=== PATIENT | female | born 1930 | race Caucasian/White ===

== ENCOUNTER 2017-08-02 16:21 | Inpatient (IN) | payer MEDICARE ==
[~2017-08-02] VITALS: Ht 165.1 cm; Wt 68.0 kg
[2017-08-02] MEDS ORDERED: ACET500C4 PO (16:58)
[2017-08-02] MEDS ORDERED: MELA3TAB PO (16:58)
[2017-08-02] MEDS ORDERED: GUAI-818 PO (16:58)
[2017-08-02] MEDS ORDERED: FERR-58 PO (16:58)
[2017-08-02] MEDS ORDERED: SENN-167 PO (16:58)
[2017-08-02] MEDS ORDERED: PREG100C PO (16:58)
[2017-08-02] MEDS ORDERED: ASCO500C16 PO (16:58)
[2017-08-02] MEDS ORDERED: LISI2.5T2 PO (16:58)
[2017-08-02] MEDS ORDERED: LORA0.5T PO (16:58)
[2017-08-02] MEDS ORDERED: GNP VIT D PO (16:58)
[2017-08-02] MEDS ORDERED: METF500T4 PO (16:58)
[2017-08-02] MEDS ORDERED: HYDR-3326 PO (16:58)
[2017-08-02] MEDS ORDERED: QUET50TA14 PO (16:58)
[2017-08-02] MEDS ORDERED: MENT71OI TP (16:58)
[2017-08-02] MEDS ORDERED: LEVO75TA7 PO (16:58)
[2017-08-02] MEDS ORDERED: ATOR20TA PO (16:58)
[2017-08-02] MEDS ORDERED: ACET-2067 PO (16:58)
[2017-08-02] MEDS ORDERED: DONE5TAB34 PO (16:58)
[2017-08-02] MEDS ORDERED: ALBU18HF2 INH (16:58)
[2017-08-02] MEDS ORDERED: VENL75TA4 PO (16:58)
[2017-08-02] MEDS ORDERED: QUET25TA PO (16:58)
[2017-08-02] MEDS ORDERED: HALLS PO (16:58)
[2017-08-02] MEDS ORDERED: [UNRECOGNIZED DRUG - OTHER] TOP (16:58)
[2017-08-02] MEDS ORDERED: POLY17PO4 PO (16:58)
[2017-08-02] MEDS ORDERED: CRAN405C PO (16:58)
[2017-08-02] MEDS ORDERED: MAGNESIUM GLUCONATE PO (16:58)
[2017-08-02] MEDS ORDERED: CYAN10009 PO (16:58)
[2017-08-02] MEDS ORDERED: [UNRECOGNIZED DRUG - OTHER] (16:58)
[2017-08-02] MEDS ORDERED: METH1POW39 MC (16:58)
[2017-08-02 17:11] LABS: BASOPHILS % (AUTO) 0.2 % (0.0-2.0); EOSINOPHILS # (AUTO) 0.1 K/uL (0.0-0.7); EOSINOPHILS % (AUTO) 1.1 % (0.0-7.0); HEMATOCRIT 34.2 % (37-47); HEMOGLOBIN 11.3 G/DL (12.0-16.0); LYMPHOCYTES % (AUTO) 22.2 % (20.5-51.5); MEAN CORPUSCULAR HEMOGLOBIN 30.4 UUG (27.0-31.0); MEAN CORPUSCULAR HGB CONC 33 g/dL (32.0-37.0); MEAN CORPUSCULAR VOLUME 92.6 FL (81.0-99.0); MONOCYTES # (AUTO) 0.4 K/UL (0.1-1.30); MONOCYTES % (AUTO) 9.1 % (0.0-11.0); NEUTROPHILS # (AUTO) 3.2 K/UL (1.8-8.9); NEUTROPHILS % (AUTO) 67.4 % (38.5-71.5); PLATELET COUNT (AUTO) 268 K/UL (150-450); WHITE BLOOD COUNT (AUTO) 4.7 K/UL (4.0-11.2)
[2017-08-02 17:18] LABS: CARBON DIOXIDE 28 mmol/L (21-32); CHLORIDE 102 mmol/L (98-107); CREATININE 1.2 mg/dL (0.6-1.3); GLUCOSE 114 mg/dL (74-106); POTASSIUM 4.4 mmol/L (3.5-5.1); UREA NITROGEN, BLOOD 28 mg/dL (7-18)
[2017-08-02] MEDS ORDERED: LORAZEPAM 0.5 MG TABLET PO ONE (17:30)
[2017-08-02 17:33] LABS: ACETAMINOPHEN < 2.0 ug/mL (10-30); ALANINE AMINOTRANSFERASE 26 U/L (14-59); ALKALINE PHOSPHATASE 67 U/L (50-136); ASPARTATE AMINOTRANSFERASE 23 U/L (15-37); BILIRUBIN,DIRECT 0.1 mg/dL (0.0-0.2); BILIRUBIN,TOTAL 0.3 mg/dL (0.2-1.0); TOTAL PROTEIN, SERUM 7.9 g/dL (6.4-8.2)
[2017-08-02] MEDS ORDERED: HYDROCODONE/APAP 10-325 MG TABLET PO ONE (17:45)
[2017-08-02 17:52] LABS: ETHANOL < 3 MG/DL (0-0)
[2017-08-02] MEDS ORDERED: HYDROCODONE/APAP 10-325 MG TABLET ONE (17:57)
[2017-08-02] MEDS ORDERED: LORAZEPAM 0.5 MG TABLET ONE ×2 (17:57→21:24)
--- NOTE | 2017-08-02 17:57 | NUR ---
CALLED [facility] FOR PSYCH EVAL AND LEFT A MESSAGE
[2017-08-02 18:00] LABS: THYROID STIMULATING HORMONE 0.947 mIU/mL (0.358-3.740)
--- NOTE | 2017-08-02 18:23 | NUR ---
CALLED [facility] FOR PSYCH EVAL.
--- NOTE | 2017-08-02 18:42 | NUR ---
PT RESTING, DAUGHTERS AT BESIDE.
--- NOTE | 2017-08-02 19:15 | NUR ---
Received report from SAIRA Bahena. Assumed care of pt at this time. Hilda with crisis team at bedside for evaluation.
--- NOTE | 2017-08-02 19:55 | NUR ---
Pt placed on a 5150 hold for gravely disabled. Pt to be admitted to MHU. Report called to SAIRA Earl. Preparing to transfer pt to the floor.
--- NOTE | 2017-08-02 20:25 | NUR ---
Pt to U via fabio
--- NOTE | 2017-08-02 20:35 | NUR ---
87 Y.O. FEMALE BROUGHT TO MHU VIA [facility] WITH ER STAFF AND FAMILY PRESENT. Pt ON A 5150 FOR GD. ACCORDING TO THE HOLD, Pt's FAMILY REQUESTED A PSYCH EVAL AT [facility]. Pt RESIDES AT [facility] AND WHILE THERE, Pt WAS EXPERIENCING INCREASED CONFUSION, AGITATION, AND PARANOIA. Pt IS CONFUSED, DISORGANIZED, AND DISORIENTED. ACCORDING TO Pt's DAUGHTER, Pt HAS BEEN INCREASINGLY CONFUSED, AGITATED, IRRITABLE, PARANOID, SUSPICIOUS, AND DELUSIONAL. Pt THINKS THEY ARE PUTTING SAND IN HER THROAT AT NIGHT, AND THINKS THAT THE CEILING IS LEAKING. Pt IS ANXIOUS AND RESTLESS. Pt ALSO VERBALIZING THAT SHE WANTS TO , ASKING HER DAUGHTER TO BRING HER A GUN. H/O BIPOLAR D/O. Pt APPEARS TO REFLECT WHAT IS ON THE HOLD, RN CONCURS WITH HOLD. Pt GIVEN ADVISEMENT AND PATIENT RIGHTS HANDBOOK. UPON FACE TO FACE EVALUATION, Pt IS A+Ox1 TO NAME ONLY, IS CONFUSED, DISORIENTED, AND DISORGANIZED. PRESENTS RESTLESS AND ANXIOUS, ATTEMPTING MULTIPLE TIMES TO GET OUT OF BED IN SPITE OF STAFF DIRECTION TO REMAIN IN BED FOR HER SAFETY. Pt UNABLE TO AMBULATE AND REQUIRES TOTAL ASSISTANCE AND CARE. Pt IS VERY FOCUSED ON SOMATIC SYMPTOMS, REPEATEDLY STATING SHE HAS "PINS ALL OVER" HER BODY. Pt STARED BLANKLY WHEN ASKED ABOUT THOUGHTS OF SI, AND WAS UNABLE TO VERBALLY CFS. Pt ADMINISTERED TYLENOL 650mg FOR GENERALIZED PAIN AND ATIVAN 0.5mg FOR ANXIETY WITH GOOD EFFECT. Pt STATED SHE IS "SCARED" AND DOESN'T REMEMBER HOW SHE GOT HERE. EMOTIONAL SUPPORT AND REORIENTATION PROVIDED. Pt HAS A MEDICAL H/O VASCULAR DEMENTIA, HTN, HLD, TBI, RECURRENT UTI, FALLS, DM 2, HYPOTHYROIDISM, CKD, CHRONIC PAIN, CHRONIC CYSTITIS, TIA, ((R) FEMUR FX (2014), PERIPHERAL NEUROPATHY, ANXIETY, MDD, INSOMNIA, AND BIPOLAR D/O. DR CLEMENTE AND DR LEE NOTIFIED OF ADMISSION, ORDERS RECEIVED. Pt EDUCATED ON UNIT RULES AND ORIENTED TO THE UNIT, REQUIRES REINFORCEMENT. VS STABLE, SKIN TEARS TO (R) UPPER CHEST AND (L) FA PRESENT. WOUNDS PHOTOGRAPHED AND DRESSED ON KERLIX. WC ORDERED. Pt HAS NO BELONGINGS WITH HER. Pt DAUGHTERS POLY AND ROXANE (DPOA) PROVIDED Pt's MEDICAL HX, ROXANE SIGNED PAPERWORK.
[2017-08-02 20:40] VITALS: BP 140/66
[2017-08-02] MEDS ORDERED: MAGNESIUM HYDROXIDE 30 ML LIQUID UDC PO PRN (21:00)
[2017-08-02] MEDS ORDERED: MAG HYDROX/AL HYDROX/SIMETH 30 ML LIQUID UDC PO PRN (21:00)
[2017-08-02] MEDS: LORAZEPAM 0.5 MG TABLET PO PRN (21:09)
[2017-08-02] MEDS: ACETAMINOPHEN 325 MG TABLET PO PRN (21:09)
[2017-08-02] MEDS ORDERED: ACETAMINOPHEN 325 MG TABLET ONE (21:23)
[2017-08-02] MEDS: TEMAZEPAM 7.5 MG CAPSULE PO PRN (23:59)
[2017-08-03] MEDS ORDERED: TEMAZEPAM 7.5 MG CAPSULE ONE (00:12)
[2017-08-03] MEDS ORDERED: Z GUARD REMEDY PASTE 57 GM TUBE TOP PRN (00:15)
[2017-08-03] MEDS ORDERED: ALBUTEROL SULFATE 8 GM HFA.AER.AD INH PRN (00:30)
[2017-08-03] MEDS ORDERED: MIRALAX 17 GM POWD.PACK PO PRN (00:30)
[2017-08-03 07:30] VITALS: BP 117/58
[2017-08-03] MEDS ORDERED: ALBUTEROL SULFATE 2.5 MG/3 ML NEBU NEB PRN (08:30)
[2017-08-03] MEDS: METFORMIN HCL 500 MG TABLET PO SCH ×2 (09:00→17:36)
[2017-08-03] MEDS: LISINOPRIL 5 MG TABLET PO SCH (09:00)
[2017-08-03] MEDS ORDERED: PREGABALIN 100 MG CAPSULE PO SCH (09:00)
[2017-08-03] MEDS: CYANOCOBALAMIN 1,000 MCG TABLET PO SCH (09:02)
[2017-08-03] MEDS: FERROUS SULFATE 325 MG TABEC PO SCH (09:02)
[2017-08-03] MEDS: LEVOTHYROXINE SODIUM 75 MCG TABLET PO SCH (09:06)
[2017-08-03] MEDS: ACETAMINOPHEN 325 MG TABLET PO PRN ×2 (09:32→21:16)
--- NOTE | 2017-08-03 10:15 | NUR ---
VS WERE TAKEN THIS MORNING AT 0730 BY SENIOR SOFTWARE DEVELOPER AND AGUSTIN. SENIOR SOFTWARE DEVELOPER REPORTED TO RN THAT O2 SAT WAS BETWEEN 85-88% RA, TAKEN 4 TIMES. THIS ENGINEER TECHNICAL STAFF WENT TO ASSESS Pt AND GOT 3 DIFFERENT O2 SATS RANGING FROM 86-89% RA. DR ALVES NOTIFIED OF Pt CONDITION, AND 02 @ 2 LPM VIA NC WAS ORDERED TO TITRATE TO 93%. AFTER PLACING THE Pt ON O2 WITH NC, Pt C/O NASAL DRYNESS. THIS ENGINEER TECHNICAL STAFF TOOK THE CANNULA OFF TO PLACE MORE LUBE ON IT, AND Pt IMMEDIATELY DE-SATTED TO 83% RA. UPON REPLACING THE 02 @ 2 LPM, Pt SATTED AT 89%. O2 WAS RAISED TO 4 LPM AND Pt SATTED AT 91%. UPPED TO 5 LPM, Pt SATTED AT 92%. PT RR WAS BETWEEN 10-12 DURING THIS TIME, SOMEWHAT LABORED. Pt C/O "PINS AND NEEDLES" PAIN, AND WHEN RN WENT TO ADMINISTER TYLENOL, Pt WAS INCREASINGLY CONFUSED AND STATED SHE WAS NOW UNABLE TO SWALLOW. DR ALVES NOTIFIED OF Pt DECOMPENSATION AND ORDERED HER TO GO TO ER FOR EVAL. NURSING OPTICAL MANAGER JOSE FRANCISCO NOTIFIED. MICHAEL FROM ER GIVEN REPORT. Pt TAKEN VIA MHU BED TO ER WITH 2 STAFF AND CHART. SITTER REMAINS WITH Pt SHE IS BEING EVALUATED BY ER . BP AND HR STABLE AT THIS TIME.
--- NOTE | 2017-08-03 13:06 | NUR ---
SOL CALLED FROM ER CALLED TO REPORT Pt WAS MEDICALLY CLEARED. RN WENT TO ART MANAGER Pt FROM ER AND FAMILY WAS PRESENT. Pt's 2 DAUGHTERS WERE PRESENT AND STATED THEY WOULD WAIT IN THE LOBBY TO SPEAK WITH THE PSYCHIATRIST. RN AND SITTER TRANSPORTED THE Pt TO THE MHU AND WHEN THE DOORS OPENED TO THE UNIT, Pt's 2 DAUGHTERS CAME INTO THE UNIT UNINVITED AND REFUSED TO LEAVE THE UNIT UNTIL THEY SPOKE WITH DR CLEMENTE. Pt's FAMILY ACCUSED STAFF OF WITHHOLDING MEDICATIONS AND BECAME VERBALLY AGGRESSIVE TOWARD STAFF. CLOSING PT'S ROOM AND KICKING STAFF OUT OF THE ROOM. THREATENING TO CALL A CABLE TOWER OPERATOR TO [facility] FOR "MISTREATING OUR MOTHER." STATING THEY CAN BRING PT HOME EVEN ON AN INVOLUNTARY HOLD. SECURITY WAS CALLED TO ESCORT THE FAMILY OUT OF THE UNIT, BUT FAMILY STILL REFUSED TO LEAVE UNTIL THEY SPOKE TO A DOCTOR. DR. CLEMENTE CALLED AND AWARE OF SITUATION, AND SPOKE TO FAMILY. PT STABLE AT THIS TIME, SLEEPING COMFORTABLY. V/S STABLE. NURSING FIRST MATE AWARE OF SITUATION.
[2017-08-03 16:34] VITALS: BP 148/69
[2017-08-03] MEDS: HYDROCODONE/APAP 5-325MG TABLET PO PRN ×2 (17:10→22:48)
[2017-08-03] MEDS: LORAZEPAM 0.5 MG TABLET PO PRN (18:24)
[2017-08-03 20:14] VITALS: BP 130/62
[2017-08-03] MEDS: QUETIAPINE FUMARATE 25 MG TABLET PO SCH ×2 (21:00→21:13)
[2017-08-03] MEDS: DONEPEZIL 5 MG TABLET PO SCH (21:13)
[2017-08-03] MEDS ORDERED: VENLAFAXINE 37.5 MG TABLET ONE (21:15)
[2017-08-03] MEDS: ATORVASTATIN 20 MG TABLET PO SCH (21:16)
[2017-08-03] MEDS ORDERED: QUETIAPINE FUMARATE 25 MG TABLET ONE (21:27)
[2017-08-03] MEDS ORDERED: DONEPEZIL 5 MG TABLET ONE (21:27)
[2017-08-03] MEDS: TEMAZEPAM 7.5 MG CAPSULE PO PRN (22:48)
--- NOTE | 2017-08-04 00:06 | NUR ---
NSG/GPS 1944 Patient first observed awake in room lying in bed, with daughter sitting in patient room. Patient appeared confused, disorganized. Family member made aware visiting hours were over, daughter requested Tylenol for patient, nurse assured it would be administered as soon as vital signs were obtained and proceeded to escort family member off the unit. Family member stated she was waiting for the psychiatrist to which staff replied by suggesting to wait in the lobby as well as offering to notify as soon as psychiatrist arrived. Family member stated they were leaving and requested the psychiatrist give them a call. Addendum: 08/04/17 at 0029 by NORY WYNN RN 2030 Patient offerted Tylenol, patient stated she did not have pain. Upon psychiatrist evaluation patient appears confused, flat affect, low mood, with clear speech. Patient is not able to state the date, or location, when asked why she is in the hospital, patient replies "well, I guess I did not feel well." Patient answered no to having daughters, and no to being afraid, patient also denied having suicidal feelings. Patient although confused was cooperative and pleasant towards doctor and staff. Family contacted by psychiatrist contract graphic designer orders carried out and administered along with Tylenol requested by family. Addendum: 08/04/17 at 0033 by NORY WYNN RN 2129 Patient's family called to request that we administer prn for pain, stated that the previous nurse had informed her to call the hospital every four hours to ask for it. Nurse informed family member that it was prn and that we would monitor for pain and administer accordingly.
--- NOTE | 2017-08-04 01:15 | NUR ---
GPS/NSG Patient's daughter (Leatha) called and asked to speak to nurse to follow up on psych medication administration, nurse informed family member it had been administered as ordered. Patient verbalized concerns about mother missing psychiatric medication for over twenty-four hours, family member asked the reason for change in dose for lyrica, staff responded by suggesting a message to flight operations inspector to call family member to discuss all questions related to medication. Patient's daughter's tone was agitated and hostile towards staff, stating dissatisfaction with our care. Patient asked if the police could be called to break the hold, patient asked why family could not take patient home when a family member had placed the hold, staff explained that the hold was placed by a Crisis Psychosocial Rehabilitation Counselor, also reminded the date and time when hold . Addendum: 08/04/17 at 0413 by NORY WYNN RN Patient's daughter asked if the hold could be broken by police not patient. Patient's daughter asked why they could not take her home.
[2017-08-04] MEDS ORDERED: LORAZEPAM 2 MG/1 ML VIAL IM ONE ×2 (01:26→16:00)
[2017-08-04] MEDS ORDERED: HALOPERIDOL LACTATE 5 MG/1 ML VIAL IM ONE ×2 (01:30→16:00)
--- NOTE | 2017-08-04 01:47 | NUR ---
NSG/GPS Patient observed to have increased agitation, patient disrobing, making threats towards staff, "you'll see, I will hurt you. Patient trying to get out of bed, accusing staff of putting sand in her diaper, verbalizing pain. Prn for pain administered as ordered as well as prn for insomnia with ineffective outcome. Patient continued to yell out help, help, as well as make threats towards staff attempting to provide care. Addendum: 08/04/17 at 0153 by NORY WYNN RN Patient continues to display agitation towards staff spitting at staff trying to get out of bed, combative when attempts to provide assistance. Psychiatrist contacted prn times one administered as ordered. Will continue to monitor for safety.
[2017-08-04] MEDS: HYDROCODONE/APAP 5-325MG TABLET PO PRN ×4 (05:37→11:54)
--- NOTE | 2017-08-04 05:44 | NUR ---
GPS/NSG PRN for pain offered patient took it swished it in hger mouth and spit it into water cup. Wasted pill, patient began to try to get out of bed, saying it was the pins and needles that made her do it. Patient continued to disrobe at this time increased agitation when providing a.m. care. Removing diaper, gown, and throwing sheets off the bed. Confused, verbally aggressive towards staff. 1:1 within arms length ordered for safety. Continue to monitor closely.
--- NOTE | 2017-08-04 06:03 | NUR ---
GPS:PT IS VERY CONFUSED AND AGITATED.CALLING OUT FOR HELP THAT SOMEONE IS TRYING TO PUT THE PINS AND THE WET BLANKET ON HER EVEN THOUGH STAFF SHOWED HER THE DIFFERENCE BETWEEN WET AND DRY TOWELS, BUT PT INSISTED THAT BOTH WERE WET WHEN SHE HELD BOTH TOWELS IN BOTH HANDS. SHE CONTINUED YELLING AND SCREAMING THAT STAFF WERE TRYING TO HURT HER WHEN STAFF DIDN'T NOT COME NEAR HER AT ALL.
[2017-08-04] MEDS: LEVOTHYROXINE SODIUM 75 MCG TABLET PO SCH (07:00)
--- NOTE | 2017-08-04 07:27 | NUR ---
LATE ENTRY: PATIENT SPIT OUT SEROQUEL HS MEDICATION.
[2017-08-04 07:30] VITALS: BP 147/98
--- NOTE | 2017-08-04 07:46 | NUR ---
SPOKE TO PATIENT'S DAUGHTER POLY THIS MORNING INFORMED THAT A MESSAGE WOULD BE ENDORSED TO DR. ALVES REGARDING THE CONCERNS ABOUT PATIENT'S MEDICATION. DR. ALVES PAGED THROUGH [employer] EXCHANGED AWAITING CALL BACK.
--- NOTE | 2017-08-04 08:48 | NUR ---
PT'S DAUGHTER POLY CALLED AND STATED STAFF MUST CALL PSYCHIATRIST IMMEDIATELY BECAUSE STAFF IS VIOLATING PT'S "HUMAN RIGHTS" AND PT HAS BECOME WORSE WHILE HOSPITALIZED. STATED IT'S AN EMERGENCY THAT HER MOTHER BE REMOVED FROM HOLD AND DISCHARGED. REAFFIRMED THAT THEIR IS NO EMERGENCY AT THIS TIME, BUT PT'S DAUGHTER IS HIGHLY ARGUMENTATIVE AND DEMANDING. STATED SHE WILL LOOK FOR DOCTORS PHONE NUMBER ONLINE AND CALL HIM HERSELF. PT ASSURED THAT SOON PSYCHIATRIST ARRIVES INTO THE UNIT, HE WILL BE INSTRUCTED TO CALL HER. PT'S DAUGHTER DID NOT ACCEPT THAT ANSWER BECAUSE "MY MOTHER CAN'T WAIT UNTIL TONIGHT UNTIL THE DOCTOR GETS THERE, SHE WILL ."
[2017-08-04] MEDS ORDERED: PREGABALIN 100 MG CAPSULE PO SCH (09:00)
[2017-08-04] MEDS: CYANOCOBALAMIN 1,000 MCG TABLET PO SCH (09:00)
[2017-08-04] MEDS: LISINOPRIL 5 MG TABLET PO SCH (09:00)
[2017-08-04] MEDS: METFORMIN HCL 500 MG TABLET PO SCH ×2 (09:00→17:00)
[2017-08-04] MEDS: FERROUS SULFATE 325 MG TABEC PO SCH (09:00)
[2017-08-04] MEDS: QUETIAPINE FUMARATE 25 MG TABLET PO SCH ×2 (09:00→21:01)
[2017-08-04] MEDS: VENLAFAXINE XR 37.5 MG CAP.SR.24H PO SCH ×2 (09:00→17:00)
--- NOTE | 2017-08-04 09:00 | NUR ---
SPOKE WITH DAUGHTER POLY, WHO CALLED THE UNIT, VIA PHONE CALL. SHE STATED THAT SHE WANTED HER MOTHER'S [facility] DOCTOR TO CALLED HER ABOUT HER MOTHER'S MEDICATION AND TO HAVE HER MOVE TO [facility] 2ND FLOOR FOR PAIN MANAGEMENT. DR. COBOS, WHO WAS IN THE UNIT A TIME OF HER CALL, SPOKE WITH DAUGHTER. Addendum: 08/05/17 at 0659 by J CARLOS LANDERS RN DATE 08/04/17 AT 2100 Addendum: 08/05/17 at 0754 by J CARLOS LANDERS RN 08/04/172099, AT TIME OF CALL, POLY WAS RUDE, DEMANDING, ACCUSING STAFF OF GIVEN HER THE WRONG INFORMATION, DISSATISFIED WITH ANY SERVICE WE PROVIDE.
--- NOTE | 2017-08-04 11:30 | NUR ---
PT'S DAUGHTER POLY CALLED ASKING FOR UPDATES REGARDING HER MOTHER. POLY WAS UPSET SAYING THAT HER MOTHER IS BEING INJECTED WITH MEDICATIONS AND THAT SHE IS ALLOWED TO SUFFER. THE DAUGHTER WAS INFORMED THAT THE PT REFUSED HER MEDICATIONS. THE DAUGHTER WAS INSISTING THAT PT WAS SUPPOSED TO BE EXPLAIN ABOUT THE NEED OF MEDICATIONS AND GIVEN THE MEDICATIONS. THE DAUGHTER DEMANDED FOR THE PSYCHIATRIST TO BE CONTACTED SHE BELIEVED THERE WAS AN EMERGENCY. DESPITE THE MULTIPLE EXPLANATIONS THE DAUGHTER WAS SAYING THAT THE PATIENT NEEDS TO BE GIVEN PRN MEDICATIONS TO CALM DOWN. THEN SHE STATED THAT THE PT NEEDS IM MEDICATIONS TO CALM DOWN. ATTEMPTED TO EXPLAIN THE CARE MULTIPLE TIMES. THE DAUGHTER REMAINS DEMANDING AND WANTS THE MOTHER TO BE DISCHARGE DESPITE THE HOLD.
[2017-08-04] MEDS: ACETAMINOPHEN 325 MG TABLET PO PRN (15:26)
[2017-08-04] MEDS: LORAZEPAM 0.5 MG TABLET PO PRN ×2 (16:01→18:11)
[2017-08-04] MEDS ORDERED: KETOROLAC TROMETHAMINE 15 MG INJ IM PRN (16:15)
--- NOTE | 2017-08-04 16:42 | NUR ---
PT FAMILY CURRENTLY AT BEDSIDE, MAKING MULTIPLE DEMANDS AND COMPLAINTS ABOUT CARE AND STAFF. STATING THAT STAFF IS MISTREATING THEIR MOTHER AND THREATENING TO CALL A [facility]. RECEIVED EMERGENCY IM MEDICATION PER DR. COBOS FOR HALDOL 2MG AND ATIVAN 1MG FOR SEVERE AGITATION, PT YELLING/SCREAMING, AND DISROBING. ALSO RECEIVED ORDER FROM DR WICK FOR TORADOL 15MG IM Q6HR DUE TO REFUSAL OF PO MEDICATIONS FOR PAIN. NOTED AND CARRIED OUT. FAMILY CONTINUES TO BE DISSATISFIED WITH ANY SERVICE STAFF PROVIDES. INFORMED THAT WELDER OXYHYDROGEN WILL BE AVAILABLE TOMORROW.
[2017-08-04] MEDS: KETOROLAC TROMETHAMINE 15 MG INJ IM SCH ×2 (16:55→23:25)
[2017-08-04] MEDS: PREGABALIN 100 MG CAPSULE PO SCH ×2 (17:00→18:52)
[2017-08-04] MEDS ORDERED: BISACODYL 10 MG SUPP.RECT RC PRN (18:15)
[2017-08-04 19:49] VITALS: BP 168/79
--- NOTE | 2017-08-04 20:00 | NUR ---
NSG: PATIENT BLOOD PRESSURE 168/79.PATIENT IS AGITATED AND C/O DISCOMFORT. ASSISTED TO REPOSITION. PROVIDED GOOD EILEEN CARE.THEN RECHECKED BLOOD PRESSURE WAS 119/76. PATIENT IS CALM NO AGITATION NOTED. CHARGE NURSE MADE AWARE.
[2017-08-04 20:30] VITALS: BP 119/76
[2017-08-04] MEDS: DONEPEZIL 5 MG TABLET PO SCH (21:01)
[2017-08-04] MEDS: ATORVASTATIN 20 MG TABLET PO SCH (21:01)
--- NOTE | 2017-08-04 21:15 | NUR ---
RECEIVED A PHONE CALL FROM ANITRA PANG. SHE STATED THAT SHE WANTED HER MOTHER TO BE TRANSFER TO [facility] UNIT FOR PAIN MANAGEMENT. SHE WAS TOLD THAT IT WAS UP TO THE INFRASTRUCTURE MANAGER TO APPROVE THE TRANSFER. SHE WILL CALL BACK TOMORROW MORNING TO TALK TO INFRASTRUCTURE MANAGER. Addendum: 08/05/17 at 0745 by J CARLOS LANDERS RN ANITRA PANG ALSO STATED THAT DR COBOS WAS "RUDE, AND NOT DREA HELPFULL". SHE ALSO STATED THAT STAFF LIE TO HER BY TELLING HER THAT IT WAS UP TO THE PSYCH DOCTOR TO APPROVE HER MOTHER TO BE TRANSFER TO 2ND FLOOR [facility] UNIT. SHE STATED THAT SHE WANTED TO NUMBER TO CALL THE INFRASTRUCTURE MANAGER RIGHT NOW. SHE WAS TOLD THAT WE WILL HAVE HER MOTHER'S INFRASTRUCTURE MANAGER CALL IN THE MORNING. DAUGHTER WAS NOT HAPPY WITH THE ANSWER, BUT AGREED TO WAIT FOR TOMORROW MORNING.
--- NOTE | 2017-08-05 | NUR ---
GPS: PATIENT SLEEPING EYE CLOSE.NO AGITATION OR DISCOMFORT NOTED.
[2017-08-05] MEDS: KETOROLAC TROMETHAMINE 15 MG INJ IM SCH ×4 (05:39→23:00)
[2017-08-05] MEDS: LEVOTHYROXINE SODIUM 75 MCG TABLET PO SCH (06:29)
--- NOTE | 2017-08-05 06:49 | NUR ---
GPS: REMAIN CALM AND COOPERATIVE WITH MEDICATION AND NURSING CARE. ASSISTED WITH ADL'S. TURN Q 2 HRS FOR SKIN SAFETY AND COMFORT.TORADOL 15 MG IM Q 6HRS FOR PAIN IS EFFECTIVE. PAIN UNDER CONTROL.1:1 SITTER @ BEDSIDE ALL THE TIMES FOR SAFETY.SLEPT 05:30 HRS THROUGH THE NIGHT.CONTINUE MONITORING FOR PAIN AD SAFETY.
--- NOTE | 2017-08-05 07:20 | NUR ---
RECEIVED A PHONE CALL FROM DAUGHTER POLY. SHE REQUESTED TO TALK TO HER MOTHER'S JEEP DRIVER. SHE WAS ADVISED THAT WE ARE NOT SURE WHAT TIME THE DOCTOR WILL BE IN THE UNIT BUT WE WILL HAVE THE MD CALL HER BACK.
[2017-08-05 07:30] VITALS: BP 113/61
[2017-08-05] MEDS: PREGABALIN 100 MG CAPSULE PO SCH ×2 (08:36→17:00)
[2017-08-05] MEDS: METFORMIN HCL 500 MG TABLET PO SCH ×2 (08:36→17:00)
[2017-08-05] MEDS: FERROUS SULFATE 325 MG TABEC PO SCH (08:36)
[2017-08-05] MEDS: VENLAFAXINE XR 37.5 MG CAP.SR.24H PO SCH ×2 (08:36→17:00)
[2017-08-05] MEDS: QUETIAPINE FUMARATE 25 MG TABLET PO SCH ×2 (08:36→21:00)
[2017-08-05] MEDS: LISINOPRIL 5 MG TABLET PO SCH (08:37)
[2017-08-05] MEDS: CYANOCOBALAMIN 1,000 MCG TABLET PO SCH (08:37)
[2017-08-05 10:07] LABS: HEPATITIS B SURFACE AG Negative (Negative)
--- NOTE | 2017-08-05 12:15 | NUR ---
Patient daughter, Lizett accused nurse that why toradol 15 mg im was administered that make patient sedated. Explained to daughter that patient is not sedated because of toradol,
--- NOTE | 2017-08-05 14:39 | NUR ---
WOUND CARE CONSULT: PT PRESENTS WITH BRUISES AND HEALED SKIN TEARS. SMALL DRY SCAB NOTED TO CHEST AREA. NO DRAINAGE NOTED. PT IS INCONTINENT. SKIN TO BE KEPT CLEAN AND DRY. ALL SKIN PROTECTION MEASURES IN PLACE. DISCUSSED WITH NURSING STAFF. WILL SEE PRN. RODRIGUEZ IN AGREEMENT WITH PLAN OF CARE.
--- NOTE | 2017-08-05 14:50 | NUR ---
maintenance and repair worker assisted Sun NOBLES, assigned nursing home social worker on the case and called and spoke with jim Carr [phone] Blackburn. Advised her that if pt. is less agitated and if facility are willing to accept the pt. back, Dr Blackburn will consider discharge. Vikas took this ghost writer's phone number and agreed to call back with outcome. Sun NOBLES, Amee CHÁVEZ and Dr Blackburn were notified of this conversation.
[2017-08-05 15:28] LABS: *BLOOD, URINE 2+ (NEGATIVE); *CLARITY,URINE CLEAR (CLEAR); *COLOR,URINE DARK YELLOW (YELLOW); *KETONES,URINE 1+ (NEGATIVE); *PROTEIN,URINE 1+ (NEGATIVE); *UROBILINOGEN,URINE 0.2 E.U./dl (NORMAL); LEUKOCYTE ESTERASE ,URINE NEGATIVE (NEGATIVE); NITRITE, URINE NEGATIVE (NEGATIVE); UGLUCOSE NEGATIVE (NEGATIVE)
[2017-08-05 15:34] LABS: *BILIRUBIN,URIN 1+ (NEGATIVE)
[2017-08-05 15:55] LABS: BACTERIA,URINE NONE SEEN /HPF (NONE SEEN)
[2017-08-05 15:56] LABS: SQUAMOUS EPITHELIAL CELL,UR FEW /HPF (NONE SEEN)
--- NOTE | 2017-08-05 16:18 | NUR ---
Initial DC Plan: Patient currently resides at [facility] [[address], [place] [address]; ]. Pt's family would like for her to return to the facility. Pt's daughter Leatha [[phone]] stated she will follow up with [facility]. SW will follow up with MD, patient, and patient's family to discuss most appropriate discharge plans. SW will form a safe and proper discharge.
--- NOTE | 2017-08-05 16:24 | NUR ---
Mica Builder: STACY submitted Firearms Mental Health Report to [employer] on 08/05.
[2017-08-05 16:48] VITALS: BP 93/53
[2017-08-05] MEDS: DONEPEZIL 5 MG TABLET PO SCH (20:29)
[2017-08-05] MEDS: MUPIROCIN 2% OINT 22 GM TUBE NS SCH (20:29)
[2017-08-05] MEDS: ATORVASTATIN 20 MG TABLET PO SCH (20:29)
[2017-08-05 21:13] VITALS: BP 112/54
--- NOTE | 2017-08-05 22:04 | NUR ---
RECEIVED PATIENT IN HER BED. SHE WAS NOTED SLEEPING BUT RESPONSIVE TO TOUCH AND VERBAL STIMULUS. 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 FIRST TREATMENT ON BACTROBAN TOPICAL WAS GIVEN TODAY. SEROQUEL 50MG PO QHS WAS HELD DUE TO PATIENT IS ASLEEP. HER V/S ARE B/P 116/64; PULSE 64 RESPIRATION 18 BREATHS/MIN AND O2SAT 96%. WE WILL CONTINUE TO MONITOR.
--- NOTE | 2017-08-06 00:07 | NUR ---
TORADOL 15MG IM Q6HRS FOR PAIN WAS HELD. PATIENT IS RESTING IN HER BED COMFORTABLE. WILL CONTINUE TO MONITOR.
--- NOTE | 2017-08-06 00:09 | NUR ---
RECEIVED A PHONE CALL FROM DAUGHTER POLY. SHE WAS NOTIFY OF PATIENT'S CONDITION. SHE STATED THAT SHE WOULD LIKE TO TALK TO DR. CLEMENTE ABOUT HER MEDICATIONS; HOWEVER, SHE WOULD LIKE HER MOTHER TO BE SEEN AND FOLLOW UP BY DR COBOS. WILL CONTINUE TO MONITOR.
[2017-08-06] MEDS: KETOROLAC TROMETHAMINE 15 MG INJ IM SCH ×3 (04:42→17:00)
--- NOTE | 2017-08-06 06:47 | NUR ---
PATIENT SLEPT FOR APPROX 5HRS THROUGH THE NIGHT. NO BX PROBLEMS NOTED OR REPORTED DURING THE SHIFT.
[2017-08-06] MEDS: LEVOTHYROXINE SODIUM 75 MCG TABLET PO SCH (07:00)
[2017-08-06 07:30] VITALS: BP 137/89
--- NOTE | 2017-08-06 07:36 | NUR ---
PATIENT REFUSED SYNTHROID 75MCG.
[2017-08-06] MEDS: LISINOPRIL 5 MG TABLET PO SCH (09:00)
[2017-08-06] MEDS: PREGABALIN 100 MG CAPSULE PO SCH ×2 (09:00→17:00)
[2017-08-06] MEDS: CYANOCOBALAMIN 1,000 MCG TABLET PO SCH (09:00)
[2017-08-06] MEDS: METFORMIN HCL 500 MG TABLET PO SCH ×2 (09:00→17:00)
[2017-08-06] MEDS: QUETIAPINE FUMARATE 25 MG TABLET PO SCH (09:00)
[2017-08-06] MEDS: MUPIROCIN 2% OINT 22 GM TUBE NS SCH (09:00)
[2017-08-06] MEDS: FERROUS SULFATE 325 MG TABEC PO SCH (09:00)
[2017-08-06] MEDS: VENLAFAXINE XR 37.5 MG CAP.SR.24H PO SCH ×2 (09:00→17:00)
--- NOTE | 2017-08-06 10:20 | NUR ---
Pt offered medications in the morning, pt takes meds and then spits them out. Explanation was given to the pt about the importance of medication compliance. Pt refuses to eat. Pt refuses medications at this time.
--- NOTE | 2017-08-06 10:47 | NUR ---
Discharge Planning Note: SW left a voicemail for patient's daughter Leatha [[phone]] to discuss discharge plans. STACY will follow up with patient's family.
--- NOTE | 2017-08-06 12:05 | NUR ---
Discharge Planning Note: STACY met with patient's daughter/DPLUBNA Phoenix [[phone]] in person to discuss discharge plans. STACY told Lizett that per Jens at [facility] [ ], the facility will accept the patient when her MRSA is cleared. STACY will continue to follow up with patient's family and [facility].
[2017-08-06 16:00] VITALS: BP 159/85
[2017-08-06] MEDS ORDERED: GUAIFENESIN/DEXTROMETHORPHAN 5 ML UDC PO PRN (16:00)
--- NOTE | 2017-08-06 16:06 | NUR ---
Spoke with Lilly ([phone] ) and then Lizett MATA and she requested another psychiatrist and sent an email to that effect. Family requested Dr Ac who declined the case. Spoke with Dr Mcelroy who agreed to accept the case. Dr Blackburn is agreeable to transferring patient to Dr Mcelroy. Family are concerned that their mother is dehydrated. John, GPS director advised that labs. will be drawn tomorrow and that pt. is being monitored. family said they " have hope in the new psychiatrist." Sun, assigned social services director is aware and updated.
[2017-08-06] MEDS ORDERED: BLOOD SUGAR DIAGNOSTIC 1 EACH STRIP VI SCH (16:30)
--- NOTE | 2017-08-06 17:00 | NUR ---
Pt Trazodol injection held b/c pt was very lethargic, salivating, and confused and disoriented. The injection was held.
--- NOTE | 2017-08-06 18:14 | NUR ---
Pt was coughing and coughing up flem Ken MINESWEEPING OFFICER notified. Pt chest x ray done and pt results were that pt has viral pneumonia. Ken MINESWEEPING OFFICER odered pt to transfer to [facility] unit. Pt d/c with exit paper work, all belongings, valuables, d/c paper work, pt vitals stable, report given to
[2017-08-06] MEDS ORDERED: ALBU2.5V38 NEB (20:55)
[2017-08-06] MEDS ORDERED: TEMA7.5C PO (20:55)
[2017-08-06] MEDS ORDERED: PREG200C PO (20:55)
[2017-08-06] MEDS ORDERED: BISA10SU12 RC (20:55)
[2017-08-06] MEDS ORDERED: ALBU1.25 NEB (20:55)
[2017-08-06] MEDS ORDERED: QUET50TA PO (20:55)
[2017-08-06] MEDS ORDERED: KETO15VI5 IM (20:55)
[2017-08-06] MEDS ORDERED: QUET25TA PO (20:55)
[2017-08-06] MEDS ORDERED: ALBU1.25 IH (20:55)
[2017-08-06] MEDS ORDERED: VENLAFAXINE (20:55)
== END 2017-08-06 18:30 | disposition short-term general hospital (02) | DRG 885 ==
LOC: ER 16:21 → GPS 20:19
PROVIDERS: ADMIT Psychiatry & Neurology Psychiatry; ATTEND Internal Medicine
DX: F31.5 Bipolar disorder, current episode depressed, severe, with psychotic features (principal); N18.9 Chronic kidney disease, unspecified; N17.0 Acute kidney failure with tubular necrosis; E11.65 Type 2 diabetes mellitus with hyperglycemia; J18.9 Pneumonia, unspecified organism; E11.22 Type 2 diabetes mellitus with diabetic chronic kidney disease; E11.42 Type 2 diabetes mellitus with diabetic polyneuropathy; E86.0 Dehydration; E03.9 Hypothyroidism, unspecified; Z79.899 Other long term (current) drug therapy; I12.9 Hypertensive chronic kidney disease with stage 1 through stage 4 chronic kidney disease, or unspecified chronic kidney disease; Z79.84 Long term (current) use of oral hypoglycemic drugs; Z86.73 Personal history of transient ischemic attack (TIA), and cerebral infarction without residual deficits; E78.5 Hyperlipidemia, unspecified; Z22.322 Carrier or suspected carrier of Methicillin resistant Staphylococcus aureus; R62.7 Adult failure to thrive; Z87.820 Personal history of traumatic brain injury; F03.90 Unspecified dementia, unspecified severity, without behavioral disturbance, psychotic disturbance, mood disturbance, and anxiety; D64.9 Anemia, unspecified; Z87.81 Personal history of (healed) traumatic fracture; E78.1 Pure hyperglyceridemia; Z87.440 Personal history of urinary (tract) infections; S02.2XXD Fracture of nasal bones, subsequent encounter for fracture with routine healing; W19.XXXD Unspecified fall, subsequent encounter; F41.9 Anxiety disorder, unspecified
CPT/HCPCS: 36415; 70030-TC; 70450; 71010; 83605; 84443; 85025; 85730; 86803; 87040; 87340; 87806; 93005; 97116; 97530; A4663; C1758; G0480; G0480-TC; J1630; J1885; J2060

== ENCOUNTER 2017-08-03 10:15 | Emergency (ER) | payer MEDICARE ==
[~2017-08-03] VITALS: Ht 165.1 cm; Wt 72.6 kg
[~2017-08-03 10:15] MED LIST: ACET-2067 PO; ACET500C4 PO; ALBU18HF2 INH; ASCO500C16 PO; ATOR20TA PO; CRAN405C PO; CYAN10009 PO; DONE5TAB34 PO; FERR-58 PO; GNP VIT D PO; GUAI-818 PO; HALLS PO; HYDR-3326 PO; LEVO75TA7 PO; LISI2.5T2 PO; LORA0.5T PO; MAGNESIUM GLUCONATE PO; MELA3TAB PO; MENT71OI TP; METF500T4 PO; METH1POW39 MC; POLY17PO4 PO; PREG100C PO; QUET25TA PO; QUET50TA14 PO; SENN-167 PO; VENL75TA4 PO; [UNRECOGNIZED DRUG - OTHER]; [UNRECOGNIZED DRUG - OTHER] TOP
--- NOTE | 2017-08-03 10:26 | NUR ---
Pt Brought to ER from [facility], RN reports pt SPO2 was dropping this AM, down to low 80's, increased to low 90's on O2. Pt is uncooperative and combative, c/o pain "everywhere," but especially her hands. No other specific complaints, no distress noted. Pt placed on monitor, O2 via NC at 2lpm.
[2017-08-03] MEDS ORDERED: HALOPERIDOL LACTATE 5 MG/1 ML VIAL IM ONE (10:45)
[2017-08-03] MEDS ORDERED: LORAZEPAM 2 MG/1 ML VIAL IM ONE (10:45)
[2017-08-03] MEDS ORDERED: HALOPERIDOL LACTATE 5 MG/1 ML VIAL ONE (10:57)
[2017-08-03] MEDS ORDERED: LORAZEPAM 2 MG/1 ML VIAL ONE (10:58)
--- NOTE | 2017-08-03 11:06 | NUR ---
Holding off on IV lock per MD.
--- NOTE | 2017-08-03 12:02 | NUR ---
Clear to return to [facility]. Family bedside. RN not available to take report yet.
--- NOTE | 2017-08-03 12:05 | NUR ---
EKG and labs cancelled by
--- NOTE | 2017-08-03 12:07 | NUR ---
Gave report to SAIRA Kat.
[2017-08-03 14:01] LABS: BASOPHILS % (AUTO) 0.2 % (0.0-2.0); EOSINOPHILS % (AUTO) 0.6 % (0.0-7.0); HEMATOCRIT 33.7 % (37-47); HEMOGLOBIN 10.9 G/DL (12.0-16.0); MEAN CORPUSCULAR HGB CONC 32 g/dL (32.0-37.0); MEAN CORPUSCULAR VOLUME 92.8 FL (81.0-99.0); MONOCYTES # (AUTO) 0.4 K/UL (0.1-1.30); MONOCYTES % (AUTO) 8.6 % (0.0-11.0); NEUTROPHILS # (AUTO) 3.5 K/UL (1.8-8.9); NEUTROPHILS % (AUTO) 69.6 % (38.5-71.5); PLATELET COUNT (AUTO) 274 K/UL (150-450); RED BLOOD CELL COUNT(AUTO) 3.64 MIL/UL (4.2-5.4); WHITE BLOOD COUNT (AUTO) 4.9 K/UL (4.0-11.2)
[2017-08-03 14:08] LABS: CARBON DIOXIDE 29 mmol/L (21-32); CHLORIDE 103 mmol/L (98-107); CREATININE 1.1 mg/dL (0.6-1.3); GLUCOSE 177 mg/dL (74-106); POTASSIUM 4.4 mmol/L (3.5-5.1); UREA NITROGEN, BLOOD 26 mg/dL (7-18)
[2017-08-03 14:14] LABS: ALANINE AMINOTRANSFERASE 21 U/L (14-59); ALKALINE PHOSPHATASE 64 U/L (50-136); ASPARTATE AMINOTRANSFERASE 21 U/L (15-37); BILIRUBIN,DIRECT 0.1 mg/dL (0.0-0.2); BILIRUBIN,TOTAL 0.3 mg/dL (0.2-1.0); TOTAL PROTEIN, SERUM 7.4 g/dL (6.4-8.2)
[2017-08-03 14:18] LABS: ACETAMINOPHEN < 2.0 ug/mL (10-30)
== END 2017-08-03 12:40 | disposition home or self-care (01) ==
LOC: ER 10:16
DX: Z02.79 Encounter for issue of other medical certificate (principal); F03.91 Unspecified dementia, unspecified severity, with behavioral disturbance; E03.9 Hypothyroidism, unspecified; E11.9 Type 2 diabetes mellitus without complications; E78.5 Hyperlipidemia, unspecified
CPT/HCPCS: 71010; 80048; 80076; 82140; 84484; 85025; 85730; 93005; 96372 ×2; 99285; A4663; G0480; G0481; J1630; J2060; 70030-TC

== ENCOUNTER 2017-08-06 19:03 | Inpatient (IN) | payer MEDICARE ==
[~2017-08-06] VITALS: Ht 165.1 cm; Wt 84.8 kg
[2017-08-06 20:00] VITALS: BP 169/97
[2017-08-06] MEDS ORDERED: KETO15VI5 IM (20:55)
[2017-08-06] MEDS ORDERED: ALBU2.5V38 NEB (20:55)
[2017-08-06] MEDS ORDERED: ALBU1.25 IH (20:55)
[2017-08-06] MEDS ORDERED: PREG200C PO (20:55)
[2017-08-06] MEDS ORDERED: QUET25TA PO (20:55)
[2017-08-06] MEDS ORDERED: BISA10SU12 RC (20:55)
[2017-08-06] MEDS ORDERED: VENLAFAXINE (20:55)
[2017-08-06] MEDS ORDERED: QUET50TA PO (20:55)
[2017-08-06] MEDS ORDERED: ALBU1.25 NEB (20:55)
[2017-08-06] MEDS ORDERED: TEMA7.5C PO (20:55)
[2017-08-06] MEDS ORDERED: KETOROLAC TROMETHAMINE 15 MG INJ ONE (21:46)
[2017-08-06] MEDS: KETOROLAC TROMETHAMINE 15 MG INJ IM PRN (21:52)
[2017-08-06] MEDS ORDERED: ALBUTEROL SULFATE 1.25 MG/3 ML NEBU IH PRN (22:00)
[2017-08-06] MEDS ORDERED: ACETAMINOPHEN 325 MG TABLET PO PRN ×3 (22:00→23:00)
[2017-08-06] MEDS ORDERED: ALBUTEROL SULFATE 2.5 MG/3 ML NEBU NEB PRN ×2 (22:00)
[2017-08-06] MEDS ORDERED: ONDANSETRON 4 MG/2 ML VIAL IV PRN ×2 (22:00→23:00)
[2017-08-06] MEDS ORDERED: MAGNESIUM HYDROXIDE 30 ML LIQUID UDC PO PRN (22:00)
[2017-08-06] MEDS ORDERED: HYDROCODONE/APAP 5-325MG TABLET PO PRN ×2 (22:00→23:00)
[2017-08-06] MEDS ORDERED: GUAIFENESIN/D-METHORPHAN 10 ML UDC (DIABETIC FORMULA) PO PRN (22:00)
[2017-08-06] MEDS ORDERED: MIRALAX 17 GM POWD.PACK PO PRN (22:00)
[2017-08-06] MEDS ORDERED: IPRATROPIUM BROMIDE 0.5 MG/2.5 ML NEBU ONE (22:13)
[2017-08-06] MEDS ORDERED: ALBUTEROL SULFATE 2.5 MG/3 ML NEBU ONE (22:14)
[2017-08-06] MEDS ORDERED: DEXTROSE 50% 50 ML DISP.SYRIN IV PRN (22:15)
[2017-08-06] MEDS ORDERED: IPRATROPIUM BROMIDE 0.5 MG/2.5 ML NEBU NEB PRN ×2 (22:15)
[2017-08-06] MEDS ORDERED: CLONIDINE HCL 0.1 MG TABLET PO PRN (22:15)
[2017-08-06] MEDS ORDERED: LEVALBUTEROL HCL NEB 0.63 MG/3 ML NEBU NEB PRN (22:15)
[2017-08-06] MEDS ORDERED: PIPERACILLIN SODIUM/TAZO 3.375 GM VIAL ONE (22:27)
[2017-08-06] MEDS: PIPERACILLIN/TAZOBACTAM/D5W 50 ML IV SCH (22:59)
[2017-08-06] MEDS ORDERED: LEVOFLOXACIN 500 MG/D5W 500 MG in PREMIXED 1 EACH IV SCH (23:00)
[2017-08-06] MEDS ORDERED: ALBUTEROL SULFATE 2.5 MG/ 0.5 ML NEBU NEB PRN (23:00)
[2017-08-06] MEDS ORDERED: ALBUTEROL SULFATE 1.25 MG/3 ML NEBU NEB PRN (23:00)
[2017-08-06] MEDS ORDERED: TEMAZEPAM 15 MG CAPSULE PO PRN (23:00)
[2017-08-06] MEDS ORDERED: LEVOFLOXACIN 500 MG/D5W 100 ML ONE (23:57)
[2017-08-07] MEDS ORDERED: ALBUTEROL SULFATE 1.25 MG/3 ML NEBU NEB SCH
[2017-08-07] MEDS ORDERED: IPRATROPIUM BROMIDE 0.5 MG/2.5 ML NEBU NEB SCH (01:30)
[2017-08-07] MEDS ORDERED: LEVALBUTEROL HCL NEB 0.63 MG/3 ML NEBU NEB SCH (01:30)
[2017-08-07] MEDS: KETOROLAC TROMETHAMINE 15 MG INJ IM PRN ×2 (03:46→09:47)
[2017-08-07] MEDS ORDERED: KETOROLAC TROMETHAMINE 15 MG INJ ONE (03:59)
[2017-08-07] MEDS: PIPERACILLIN/TAZOBACTAM/D5W 50 ML IV SCH (04:44)
[2017-08-07] MEDS: BLOOD SUGAR DIAGNOSTIC 1 EACH STRIP VI SCH ×3 (05:33→17:00)
[2017-08-07 05:44] VITALS: BP 128/73
[2017-08-07 07:15] LABS: BASOPHILS % (AUTO) 0.2 % (0.0-2.0); HEMATOCRIT 34.2 % (31.2-41.9); HEMOGLOBIN 11.8 g/dL (10.9-14.3); LYMPHOCYTES % (AUTO) 11.3 % (20.5-51.5); MEAN CORPUSCULAR HEMOGLOBIN 31.8 uug (24.7-32.8); MEAN CORPUSCULAR HGB CONC 35 g/dL (32.3-35.6); MONOCYTES # (AUTO) 0.7 K/uL (2.0-10.0); MONOCYTES % (AUTO) 8.3 % (0.0-11.0); NEUTROPHILS # (AUTO) 7.1 K/uL (1.8-8.9); NEUTROPHILS % (AUTO) 80.2 % (38.5-71.5); PLATELET COUNT (AUTO) 329 K/uL (179-408); RED BLOOD CELL COUNT(AUTO) 3.72 MIL/uL (3.63-4.92)
[2017-08-07 07:25] LABS: WHITE BLOOD COUNT (AUTO) 8.9 K/uL (3.8-11.8)
[2017-08-07 07:58] LABS: ALANINE AMINOTRANSFERASE 22 U/L (14-59); ALKALINE PHOSPHATASE 70 U/L (50-136); ASPARTATE AMINOTRANSFERASE 18 U/L (15-37); BILIRUBIN,TOTAL 0.4 mg/dL (0.2-1.0); CARBON DIOXIDE 26 mmol/L (21-32); CHLORIDE 106 mmol/L (98-107); CREATININE 1.8 mg/dL (0.6-1.3); GLUCOSE 176 mg/dL (74-106); MAGNESIUM 1.9 mg/dL (1.8-2.4); PHOSPHOROUS 4.5 mg/dL (2.5-4.9); TOTAL PROTEIN, SERUM 7.4 g/dL (6.4-8.2)
[2017-08-07] MEDS: PANTOPRAZOLE SODIUM 40 MG TABLET.DR PO SCH (08:14)
[2017-08-07] MEDS: CYANOCOBALAMIN 1,000 MCG TABLET PO SCH (09:00)
[2017-08-07] MEDS ORDERED: ASCORBIC ACID 1000 MG PO SCH (09:00)
[2017-08-07] MEDS ORDERED: LISINOPRIL 5 MG TABLET PO SCH (09:00)
[2017-08-07] MEDS ORDERED: METFORMIN HCL 500 MG TABLET PO SCH (09:00)
[2017-08-07] MEDS: SENNOSIDES 1 TABLET PO SCH (09:00)
[2017-08-07] MEDS ORDERED: QUETIAPINE FUMARATE 25 MG TABLET PO SCH ×2 (09:00→21:00)
[2017-08-07] MEDS ORDERED: PREGABALIN 100 MG CAPSULE PO SCH (09:00)
[2017-08-07] MEDS: FERROUS SULFATE 325 MG TABEC PO SCH (09:00)
[2017-08-07] MEDS ORDERED: VENLAFAXINE 75 MG TABLET PO SCH ×2 (09:00)
[2017-08-07 09:26] LABS: UREA NITROGEN, BLOOD 56 mg/dL (7-18)
[2017-08-07] MEDS: DONEPEZIL 5 MG TABLET PO SCH (09:46)
[2017-08-07] MEDS: LEVOTHYROXINE SODIUM 75 MCG TABLET PO SCH (09:46)
[2017-08-07] MEDS: MUPIROCIN 2% OINT 22 GM TUBE NS SCH ×2 (09:47→20:27)
[2017-08-07] MEDS: ASCORBIC ACID 500 MG TABLET PO SCH ×2 (09:55→20:29)
[2017-08-07] MEDS ORDERED: IV NS 1000 ML 1,000 ML IV PRN (10:00)
[2017-08-07 12:00] VITALS: BP 167/76
[2017-08-07] MEDS: PREGABALIN 25 MG CAPSULE PO SCH ×2 (12:40→18:03)
[2017-08-07] MEDS: PIPERACILLIN/TAZOBACTAM/D5W 2.25 G in PREMIXED 1 EACH IV SCH ×4 (12:40→23:40)
[2017-08-07] MEDS ORDERED: CLONIDINE HCL 0.1 MG TABLET PO PRN (14:30)
[2017-08-07 15:53] VITALS: BP 163/91
[2017-08-07] MEDS: KETOROLAC TROMETHAMINE 15 MG INJ IVP PRN ×3 (16:28→22:36)
[2017-08-07] MEDS: QUETIAPINE FUMARATE 25 MG TABLET PO SCH (18:04)
[2017-08-07] MEDS: VENLAFAXINE XR 37.5 MG CAP.SR.24H PO SCH (18:04)
[2017-08-07 19:00] VITALS: BP 134/75
[2017-08-07] MEDS ORDERED: ATORVASTATIN 20 MG TABLET PO SCH (21:00)
[2017-08-08] MEDS: PIPERACILLIN/TAZOBACTAM/D5W 2.25 G in PREMIXED 1 EACH IV SCH ×3 (05:00→17:40)
[2017-08-08] MEDS: PANTOPRAZOLE SODIUM 40 MG TABLET.DR PO SCH ×2 (06:22→06:27)
[2017-08-08] MEDS: LEVOTHYROXINE SODIUM 75 MCG TABLET PO SCH ×2 (06:22→06:28)
[2017-08-08 06:54] VITALS: BP 152/78
[2017-08-08 06:57] LABS: ALANINE AMINOTRANSFERASE 23 U/L (14-59); ALKALINE PHOSPHATASE 61 U/L (50-136); ASPARTATE AMINOTRANSFERASE 18 U/L (15-37); BASOPHILS % (AUTO) 0.2 % (0.0-2.0); BILIRUBIN,TOTAL 0.4 mg/dL (0.2-1.0); CARBON DIOXIDE 28 mmol/L (21-32); CHLORIDE 110 mmol/L (98-107); CREATININE 1.6 mg/dL (0.6-1.3); EOSINOPHILS % (AUTO) 0.5 % (0.0-7.0); GLUCOSE 171 mg/dL (74-106); HEMATOCRIT 33.6 % (31.2-41.9); HEMOGLOBIN 11.5 g/dL (10.9-14.3); LYMPHOCYTES # (AUTO) 1.1 K/uL (20.0-40.0); LYMPHOCYTES % (AUTO) 13.4 % (20.5-51.5); MAGNESIUM 1.9 mg/dL (1.8-2.4); MEAN CORPUSCULAR HEMOGLOBIN 31.7 uug (24.7-32.8); MEAN CORPUSCULAR HGB CONC 34 g/dL (32.3-35.6); MEAN CORPUSCULAR VOLUME 92.5 fL (75.5-95.3); MONOCYTES # (AUTO) 0.6 K/uL (2.0-10.0); MONOCYTES % (AUTO) 7.7 % (0.0-11.0); NEUTROPHILS # (AUTO) 6.4 K/uL (1.8-8.9); NEUTROPHILS % (AUTO) 78.2 % (38.5-71.5); PHOSPHOROUS 3.5 mg/dL (2.5-4.9); PLATELET COUNT (AUTO) 346 K/uL (179-408); POTASSIUM 3.8 mmol/L (3.5-5.1); RED BLOOD CELL COUNT(AUTO) 3.63 MIL/uL (3.63-4.92); TOTAL PROTEIN, SERUM 7.1 g/dL (6.4-8.2); UREA NITROGEN, BLOOD 56 mg/dL (7-18); WHITE BLOOD COUNT (AUTO) 8.2 K/uL (3.8-11.8)
[2017-08-08] MEDS: KETOROLAC TROMETHAMINE 15 MG INJ IVP PRN (08:16)
[2017-08-08] MEDS: CYANOCOBALAMIN 1,000 MCG TABLET PO SCH (08:17)
[2017-08-08] MEDS: QUETIAPINE FUMARATE 25 MG TABLET PO SCH ×2 (08:17→16:57)
[2017-08-08] MEDS: ASCORBIC ACID 500 MG TABLET PO SCH ×2 (08:17→20:53)
[2017-08-08] MEDS: PREGABALIN 25 MG CAPSULE PO SCH ×2 (08:17→16:57)
[2017-08-08] MEDS: VENLAFAXINE XR 37.5 MG CAP.SR.24H PO SCH ×2 (08:17→16:57)
[2017-08-08] MEDS: SENNOSIDES 1 TABLET PO SCH (08:17)
[2017-08-08] MEDS: DONEPEZIL 5 MG TABLET PO SCH (08:18)
[2017-08-08] MEDS: FERROUS SULFATE 325 MG TABEC PO SCH (08:18)
[2017-08-08] MEDS: MUPIROCIN 2% OINT 22 GM TUBE NS SCH ×2 (08:21→22:06)
[2017-08-08] MEDS ORDERED: AMLODIPINE 2.5 MG TABLET PO SCH (09:00)
[2017-08-08] MEDS: BLOOD SUGAR DIAGNOSTIC 1 EACH STRIP VI SCH ×2 (09:09→16:58)
[2017-08-08] MEDS ORDERED: AMLODIPINE 5 MG TABLET PO SCH (11:00)
[2017-08-08] MEDS ORDERED: hydrALAZINE HCL 25 MG TABLET PO ONE (11:15)
[2017-08-08 11:47] LABS: *BILIRUBIN,URIN NEGATIVE (NEGATIVE); *BLOOD, URINE Trace-lysed (NEGATIVE); *CLARITY,URINE CLOUDY (CLEAR); *COLOR,URINE YELLOW (YELLOW); *KETONES,URINE NEGATIVE (NEGATIVE); *PROTEIN,URINE NEGATIVE (NEGATIVE); *UROBILINOGEN,URINE 0.2 E.U./dl (NORMAL); LEUKOCYTE ESTERASE ,URINE 1+ (NEGATIVE); NITRITE, URINE NEGATIVE (NEGATIVE); UGLUCOSE NEGATIVE (NEGATIVE)
[2017-08-08] MEDS: LORAZEPAM 0.5 MG TABLET PO PRN ×3 (11:56→21:11)
[2017-08-08 12:00] VITALS: BP 164/96
[2017-08-08 12:14] LABS: BACTERIA,URINE NONE SEEN /HPF (NONE SEEN); SQUAMOUS EPITHELIAL CELL,UR FEW /HPF (NONE SEEN); WBC,URINE 50-80 /HPF (0-3)
[2017-08-08 12:15] LABS: RBC,URINE 0-3 /HPF (0-3)
[2017-08-08 13:02] LABS: *CREATININE,URINE 76.8 mg/dL (30-125); *URINE TOTAL PROTEIN RANDOM 30.1 mg/dL (<150/24HR)
[2017-08-08] MEDS ORDERED: MAG HYDROX/AL HYDROX/SIMETH 30 ML LIQUID UDC PO PRN (13:15)
[2017-08-08] MEDS: HEPARIN SODIUM,PORCINE 5,000 UNITS/ML VIAL SQ SCH ×2 (13:15→20:54)
[2017-08-08] MEDS ORDERED: MORPHINE SULFATE 2 MG/1 ML DISP.SYRIN IV PRN ×2 (13:30)
[2017-08-08] MEDS ORDERED: HYDROMORPHONE 2 MG/1 ML DISP.SYRIN IV PRN (13:45)
[2017-08-08 16:00] VITALS: BP 166/86
[2017-08-08] MEDS: HYDROMORPHONE 2 MG/1 ML DISP.SYRIN IV PRN (17:40)
[2017-08-08 20:00] VITALS: BP 159/76
[2017-08-08] MEDS ORDERED: PREGABALIN 100 MG CAPSULE PO ONE (20:15)
[2017-08-08] MEDS ORDERED: PREGABALIN 25 MG CAPSULE PO ONE (20:45)
[2017-08-08] MEDS: AMLODIPINE 5 MG TABLET PO SCH (21:00)
[2017-08-08 22:00] VITALS: BP 140/77
[2017-08-08] MEDS: hydrALAZINE HCL 25 MG TABLET PO SCH (22:07)
[2017-08-08] MEDS ORDERED: MUPIROCIN 2% OINT 22 GM TUBE ONE (22:14)
[2017-08-09] MEDS: PIPERACILLIN/TAZOBACTAM/D5W 2.25 G in PREMIXED 1 EACH IV SCH ×3 (00:20→12:35)
[2017-08-09] MEDS: hydrALAZINE HCL 25 MG TABLET PO SCH ×2 (05:17→14:00)
[2017-08-09 05:59] VITALS: BP 136/70
[2017-08-09] MEDS: PANTOPRAZOLE SODIUM 40 MG TABLET.DR PO SCH (06:11)
[2017-08-09] MEDS: LEVOTHYROXINE SODIUM 75 MCG TABLET PO SCH (06:11)
[2017-08-09 06:40] LABS: ALANINE AMINOTRANSFERASE 26 U/L (14-59); ALKALINE PHOSPHATASE 61 U/L (50-136); ASPARTATE AMINOTRANSFERASE 24 U/L (15-37); BILIRUBIN,TOTAL 0.5 mg/dL (0.2-1.0); CARBON DIOXIDE 28 mmol/L (21-32); CHLORIDE 107 mmol/L (98-107); CREATINE KINASE, TOTAL 51 U/L (26-192); CREATININE 1.4 mg/dL (0.6-1.3); GLUCOSE 142 mg/dL (74-106); MAGNESIUM 1.8 mg/dL (1.8-2.4); PHOSPHOROUS 3.3 mg/dL (2.5-4.9); POTASSIUM 3.5 mmol/L (3.5-5.1); TOTAL PROTEIN, SERUM 6.8 g/dL (6.4-8.2); UREA NITROGEN, BLOOD 52 mg/dL (7-18)
[2017-08-09 07:35] LABS: BASOPHILS % (AUTO) 0.3 % (0.0-2.0); EOSINOPHILS # (AUTO) 0.1 K/uL (0.0-0.7); EOSINOPHILS % (AUTO) 1.3 % (0.0-7.0); HEMATOCRIT 34.6 % (31.2-41.9); HEMOGLOBIN 11.9 g/dL (10.9-14.3); LYMPHOCYTES # (AUTO) 1.4 K/uL (20.0-40.0); LYMPHOCYTES % (AUTO) 14.2 % (20.5-51.5); MEAN CORPUSCULAR HEMOGLOBIN 31.9 uug (24.7-32.8); MEAN CORPUSCULAR HGB CONC 34 g/dL (32.3-35.6); MEAN CORPUSCULAR VOLUME 92.6 fL (75.5-95.3); MONOCYTES # (AUTO) 0.7 K/uL (2.0-10.0); NEUTROPHILS # (AUTO) 7.8 K/uL (1.8-8.9); NEUTROPHILS % (AUTO) 77.2 % (38.5-71.5); PLATELET COUNT (AUTO) 337 K/uL (179-408); RED BLOOD CELL COUNT(AUTO) 3.73 MIL/uL (3.63-4.92); WHITE BLOOD COUNT (AUTO) 10.1 K/uL (3.8-11.8)
[2017-08-09] MEDS: QUETIAPINE FUMARATE 25 MG TABLET PO SCH ×2 (08:14→17:02)
[2017-08-09] MEDS: MUPIROCIN 2% OINT 22 GM TUBE NS SCH ×2 (08:14→20:49)
[2017-08-09] MEDS: DONEPEZIL 5 MG TABLET PO SCH (08:14)
[2017-08-09] MEDS: CYANOCOBALAMIN 1,000 MCG TABLET PO SCH (08:14)
[2017-08-09] MEDS: VENLAFAXINE XR 37.5 MG CAP.SR.24H PO SCH ×2 (08:14→17:02)
[2017-08-09] MEDS: SENNOSIDES 1 TABLET PO SCH (08:14)
[2017-08-09] MEDS: ASCORBIC ACID 500 MG TABLET PO SCH (08:15)
[2017-08-09] MEDS: FERROUS SULFATE 325 MG TABEC PO SCH (08:15)
[2017-08-09] MEDS: AMLODIPINE 5 MG TABLET PO SCH (08:15)
[2017-08-09] MEDS: PREGABALIN 100 MG CAPSULE PO SCH ×2 (08:15→17:02)
[2017-08-09] MEDS: HEPARIN SODIUM,PORCINE 5,000 UNITS/ML VIAL SQ SCH (08:16)
[2017-08-09] MEDS: BLOOD SUGAR DIAGNOSTIC 1 EACH STRIP VI SCH ×2 (09:13→17:20)
[2017-08-09] MEDS: LORAZEPAM 0.5 MG TABLET PO PRN (09:23)
[2017-08-09 11:22] VITALS: BP 133/72
[2017-08-09] MEDS: HYDROMORPHONE 2 MG/1 ML DISP.SYRIN IV PRN ×2 (11:38→20:32)
[2017-08-09 15:00] VITALS: BP 99/56
[2017-08-09 17:01] VITALS: BP 112/57
[2017-08-09] MEDS ORDERED: LEVO75TA7 PO (17:13)
[2017-08-09] MEDS ORDERED: PANT40TA2 PO (17:13)
[2017-08-09] MEDS ORDERED: PREG100C PO (17:13)
[2017-08-09] MEDS ORDERED: QUET25TA PO (17:13)
[2017-08-09] MEDS ORDERED: GUAI118L48 PO (17:13)
[2017-08-09] MEDS ORDERED: FERR325T28 PO (17:13)
[2017-08-09] MEDS ORDERED: LACT1CAP59 PO (17:13)
[2017-08-09] MEDS ORDERED: CEFU250T85 PO (17:13)
[2017-08-09] MEDS ORDERED: DONE5TAB7 PO (17:13)
[2017-08-09] MEDS ORDERED: ASCO500T9 PO (17:13)
[2017-08-09] MEDS ORDERED: SENN-167 PO (17:13)
[2017-08-09] MEDS ORDERED: VENL37.55 PO (17:13)
[2017-08-09] MEDS ORDERED: CYAN10009 PO (17:13)
[2017-08-09] MEDS ORDERED: MUPI22OI2 NS (17:13)
[2017-08-09] MEDS ORDERED: AMLO5TAB2 PO (17:13)
[2017-08-09] MEDS ORDERED: LORA0.5T48 PO (17:13)
[2017-08-09] MEDS ORDERED: ACET325T53 PO (17:13)
[2017-08-09] MEDS ORDERED: CEFUROXIME AXETIL 250 MG TABLET PO SCH (21:00)
[2017-08-12 07:07] LABS: ALBUMIN 3.2 g/dL (2.9-4.4); ALPHA-1-GLOBULIN 0.2 g/dL (0.0-0.4); ALPHA-2-GLOBULIN 1.2 g/dL (0.4-1.0); BETA GLOBULIN 0.9 g/dL (0.7-1.3); GAMMA GLOBULIN 0.8 g/dL (0.4-1.8); GLOBULIN, TOTAL 3.1 g/dL (2.2-3.9); M-SPIKE Not Observed g/dL (Not Observed)
== END 2017-08-09 20:58 | disposition hospice, home (50) | DRG 177 ==
LOC: MED 19:03
PROVIDERS: ADMIT Internal Medicine; ATTEND Internal Medicine
DX: J69.0 Pneumonitis due to inhalation of food and vomit (principal); J96.01 Acute respiratory failure with hypoxia; N17.0 Acute kidney failure with tubular necrosis; G92 Toxic encephalopathy; I50.23 Acute on chronic systolic (congestive) heart failure; E11.22 Type 2 diabetes mellitus with diabetic chronic kidney disease; D68.59 Other primary thrombophilia; I13.0 Hypertensive heart and chronic kidney disease with heart failure and stage 1 through stage 4 chronic kidney disease, or unspecified chronic kidney disease; E87.0 Hyperosmolality and hypernatremia; F31.5 Bipolar disorder, current episode depressed, severe, with psychotic features; I42.9 Cardiomyopathy, unspecified; E11.40 Type 2 diabetes mellitus with diabetic neuropathy, unspecified; T46.4X5A Adverse effect of angiotensin-converting-enzyme inhibitors, initial encounter; T39.8X5A Adverse effect of other nonopioid analgesics and antipyretics, not elsewhere classified, initial encounter; Y92.89 Other specified places as the place of occurrence of the external cause; E11.65 Type 2 diabetes mellitus with hyperglycemia; N18.9 Chronic kidney disease, unspecified; E78.1 Pure hyperglyceridemia; E66.9 Obesity, unspecified; Z68.31 Body mass index [BMI] 31.0-31.9, adult; F03.90 Unspecified dementia, unspecified severity, without behavioral disturbance, psychotic disturbance, mood disturbance, and anxiety; N30.20 Other chronic cystitis without hematuria; R62.7 Adult failure to thrive; E03.9 Hypothyroidism, unspecified; E86.0 Dehydration; Z74.09 Other reduced mobility; J84.9 Interstitial pulmonary disease, unspecified; Z85.828 Personal history of other malignant neoplasm of skin; Z86.73 Personal history of transient ischemic attack (TIA), and cerebral infarction without residual deficits; F09 Unspecified mental disorder due to known physiological condition; Z79.84 Long term (current) use of oral hypoglycemic drugs; Z87.81 Personal history of (healed) traumatic fracture
CPT/HCPCS: 36415; 70030-TC; 71010; 76770; 83735; 83970; 84100; 84155; 84156; 84165; 84300; 85025; 85730; 87086; 92526; 92610; 93005; 93307; 94664; A4663; C1758; G0480-TC; J1170; J1644; J1885; J1956; J2543; J3590; J7030; J7040; J7060